=== PATIENT | male | born 1960 | race Caucasian/White ===

== ENCOUNTER 2023-07-03 21:12 | Inpatient (IN) ==
[2023-07-03] MEDS: OPTIRAY 320 125ml IV ONE (21:15)
--- NOTE | 2023-07-03 21:24 | Emergency Department Note ---
Impression & Plan CVA (cerebral vascular accident), Expressive aphasia, Facial droop due to acute cerebrovascular accident (CVA), Left-sided weakness, Rhabdomyolysis, Elevated troponin ED Provider Note NAME: DENNIS MARKS AGE: 63 SEX: M : 1960 ARRIVES VIA: Ambulance INFORMANT: Patient ED PROVIDER(S): Bhavik Montes MD CHIEF COMPLAINT: Left sided weakness, Prolonged down-time PLAN: Disposition: Admit MEDICAL DECISION MAKING: The patient is a pleasant 63-year-old gentleman with past medical history of acid reflux without regular primary care follow-up who presents to the emergency department via EMS for evaluation of left-sided weakness in the setting of having unwitnessed fall and prolonged downtime estimated to be since Saturday when the family reports they last spoke to him on the phone in the morning. They report that they grew concerned yesterday when they did not hear from him as they usually do and were trying to call him and it was not until today that he was discovered laying on the ground in his home where it seems he may have been since at least Saturday evening. I did review the case with EMS via medical command call and given unclear last known well which likely was Saturday no indication for stroke activation however his CT imaging was expedited and the patient was taken directly to the CT given he was stable and protecting his airway. The patient's daughter and sister did arrive to the bedside. On my evaluation upon arrival to the critical care bay the patient's blood pressure is elevated in the 170s/70s and vital signs otherwise stable. Appears clinically dry. He has overt expressive aphasia, left-sided facial droop, left- sided weakness with 0/5 strength of the left upper extremity and 2/5 strength of the left lower extremity. Per my preliminary interpretation of CT imaging suggest right MCA territory stroke. I did review this with the patient and family at the bedside and explained that due to his onset of symptoms and last known well he is outside the window for acute treatment with systemic TNK or endovascular procedures. EKG without overt acute ischemia. CXR negative for acute cardiopulmonary process per my personal preliminary review/interpretation. WBC, H/H and platelets within normal limits. Chemistry without metabolic acidosis. BUNs/creatinine 30 consistent with patient's clinically dry appearance. Lactic acid 1.5, within normal limits. LFTs unremarkable. CPK is elevated at 887 in setting of prolonged downtime. Initial high-sensitivity troponin 43, nonspecific. Procalcitonin is not elevated. UA without evidence of infection but with 3+ ketones consistent with patient's clinically dry appearance. Urine drug screen was negative. Respiratory BioFire was negative. Medical alcohol was undetectable. CT of the head and CT of the head and neck radiology interpretation completed and confirms suspected initial impression of right MCA stroke with hypodensities noted in the right prieto radiata, caudate and basal ganglia and occlusion of the M1 segment of the right MCA with distal reconstitution. CT of the chest and abdomen pelvis as well as cervical spine negative for acute traumatic findings. Description of bladder prominence less likely to be related to UTI given unremarkable UA. Patient and family at bedside are in agreement with plan for admission and further management. IV fluid hydration provided and blood pressure did improve. Case was discussed with Dr. Hartley, [facility], who will evaluate the patient for admission. Further management per admitting team. Triage Nursing notes reviewed and agree them. Prior/external medical records reviewed Vital Signs: reviewed Differential diagnosis: Infection, dehydration, metabolic abnormality, hypo/hyperglycemia, electrolyte disturbance, anemia, hypoxia, cardiac sources, intracerebral event, toxicologic, neurologic, as well as other pathologies. ER treatment provided: See below. Diagnostics interpreted by me: ECG: Normal sinus rhythm, 78 bpm, no ectopy, LVH, no overt ST ovation or depression, QTc 430, QRS 82. Cardiac Monitoring: An order for continuous cardiac monitoring was placed and demonstrated normal sinus rhythm, 78 bpm, no ectopy. Laboratory studies: See below Imaging studies: See below Consultation(s): Case was discussed with Dr. Hartley [facility], who will evaluate the patient for admission. HPI: The patient is a pleasant 63-year-old gentleman with past medical history of acid reflux without regular primary care follow-up who presents to the emergency department via EMS for evaluation of left-sided weakness in the setting of having unwitnessed fall and prolonged downtime estimated to be since Saturday when the family reports they last spoke to him on the phone in the morning. They report that they grew concerned yesterday when they did not hear from him as they usually do and were trying to call him and it was not until today that he was discovered laying on the ground in his home where it seems he may have been since at least Saturday evening. I did review the case with EMS via medical command call and given unclear last known well which likely was Saturday no indication for stroke activation however his CT imaging was expedited and the patient was taken directly to the CT given he was stable and protecting his airway. The patient's daughter and sister did arrive to the bedside. ROS: See above HPI for pertinent positives & negatives. A total of 10 systems reviewed and were otherwise negative. VITALS:See Below PHYSICAL EXAMINATION: GENERAL: Awake, alert, in no distress HENT: Normocephalic. Left temporal/facial pressure-dependent erythema. Oropharynx with dry mucous membranes and otherwise unremarkable. EYES: Normal conjunctiva. Sclera non-icteric. NECK: Supple. No nuchal rigidity. FROM. No JVD. RESPIRATORY: Clear to auscultation. CARDIAC: Regular rate, normal rhythm. Extremities warm and well perfused. Pulses equal. ABDOMEN: Soft, non-distended. No tenderness to palpation. No rebound or guarding. No masses. RECTAL: Deferred. MUSCULOSKELETAL: Chest examination reveals no tenderness. The back is symmetrical on inspection without obvious abnormality. There is no CVA tenderness to palpation. No joint edema. LOWER EXTREMITIES: Calves are equal size bilaterally and non-tender. No edema. No discoloration. NEURO: Overt expressive aphasia, left-sided facial droop, left-sided weakness with 0/5 strength of the left upper extremity and 2/5 strength of the left lower extremity. SKIN: No rash or jaundice noted. ED COURSE: Critical Care: I have personally spent greater than 35 minutes of critical care time in the direct management of this patient. This includes bedside care, interpretation of diagnostic studies, and testing, discussion with consultants, patient, and family members, and other required patient management activities. This 35 minutes is in excess of all separately billable procedures. Bhavik Montes MD Past Med/Surg History Medical History H/O gastroesophageal reflux (GERD) Social History Smoking Status: Never smoker Preferred Language: Lao Feels Safe at Home: Yes Allergies Allergies Allergy/AdvReac Type Severity Reaction Status Date / Time No Known Allergies Allergy Verified 07/03/23 21:36 Home Meds Home Medications Medication Instructions Recorded Confirmed No Known Home Medications 07/03/23 07/03/23 Results & Data (ED) Vital Signs Vital Signs - 24 hr 07/03/23 21:26 07/03/23 21:26 07/03/23 21:30 Temperature 37.2 C Temperature Source Axillary Pulse Rate 83 78 78 Pulse Rate from SpO2 Sensor 78 Pulse Rhythm Regular Pulse Strength Normal Respiratory Rate 18 20 Respiratory Effort / Characteristics Non-Labored Spontaneous Respiratory Depth Normal Respiratory Pattern Regular Blood Pressure 172/70 H 171/85 H Blood Pressure Mean 104 113 Pulse Oximetry 95 96 Oxygen Delivery Method Room Air Room Air Sepsis Recent Fever Within 48 Hours No Sepsis New/Unexplained Change in Mental Status Yes Sepsis Action Taken by Nursing No Action Required 07/03/23 21:45 07/03/23 22:00 07/03/23 22:15 Temperature Temperature Source Pulse Rate 80 74 77 Pulse Rate from SpO2 Sensor 79 74 76 Pulse Rhythm Pulse Strength Respiratory Rate 23 26 H 28 H Respiratory Effort / Characteristics Respiratory Depth Respiratory Pattern Blood Pressure 175/69 H 174/89 H 164/80 H Blood Pressure Mean 104 117 108 Pulse Oximetry 96 95 94 Oxygen Delivery Method Room Air Room Air Room Air Sepsis Recent Fever Within 48 Hours Sepsis New/Unexplained Change in Mental Status Sepsis Action Taken by Nursing 07/03/23 22:30 07/03/23 22:45 07/03/23 23:00 Temperature Temperature Source Pulse Rate 75 77 77 Pulse Rate from SpO2 Sensor 75 76 77 Pulse Rhythm Pulse Strength Respiratory Rate 28 H 25 H 26 H Respiratory Effort / Characteristics Respiratory Depth Respiratory Pattern Blood Pressure 169/85 H 169/80 H 170/82 H Blood Pressure Mean 113 109 111 Pulse Oximetry 94 94 93 Oxygen Delivery Method Room Air Sepsis Recent Fever Within 48 Hours Sepsis New/Unexplained Change in Mental Status Sepsis Action Taken by Nursing 07/03/23 23:15 07/03/23 23:30 07/03/23 23:45 Temperature Temperature Source Pulse Rate 82 79 76 Pulse Rate from SpO2 Sensor 80 81 76 Pulse Rhythm Pulse Strength Respiratory Rate 28 H 20 26 H Respiratory Effort / Characteristics Respiratory Depth Respiratory Pattern Blood Pressure 168/77 H 161/78 H 157/80 H Blood Pressure Mean 107 105 105 Pulse Oximetry 93 93 92 Oxygen Delivery Method Sepsis Recent Fever Within 48 Hours Sepsis New/Unexplained Change in Mental Status Sepsis Action Taken by Nursing Laboratory Data Attestation: I reviewed the patient's lab results. 07/03/23 20:30 07/03/23 20:30 Lab Results 07/03/23 07/03/23 07/03/23 Range/Units 20:30 21:39 21:43 WBC 9.17 (4.8-10.8) K/ul RBC 5.49 (4.70-6.10) M/uL Hgb 16.3 (14.0-18.0) g/dl POC Hgb 15.0 (14.0-18.0) g/dl Hct 46.9 (42.0-52.0) % POC Hct 44 (42-52) % MCV 85.4 (80.0-100.0) fL MCH 29.7 (25.0-34.0) pg MCHC 34.8 (32.0-36.0) g/dL RDW Std Deviation 38.9 (36.4-46.3) fL RDW Coeff of Emperatriz 12.4 (11.5-14.5) % Plt Count 194 (130-400) K/uL MPV 11.5 (9.4-12.4) fL Immature Gran % (Auto) 0.2 % Neut % (Auto) 74.3 % Lymph % (Auto) 17.1 % [place] % (Auto) 8.0 % Eos % (Auto) 0.1 % Baso % (Auto) 0.3 % Neut # (Auto) 6.81 H (1.40-6.50) K/uL Lymph # (Auto) 1.57 (1.20-3.40) K/uL [place] # (Auto) 0.73 H (0.11-0.59) K/uL Eos # (Auto) 0.01 (0.00-0.50) K/uL Baso # (Auto) 0.03 (0.00-0.20) K/uL Immature Gran # (Auto) 0.02 (0.01-0.20) K/uL PT 11.8 (9.0-12.0) Seconds INR 1.1 (0.9-1.1) APTT 26 (21-31) Seconds PTT Ratio 0.9 POC Sodium 138 (135-144) mmol/L Sodium 140 (136-145) mmol/L POC Potassium 5.4 H (3.3-5.0) mmol/L Potassium 4.0 (3.5-5.1) mmol/L POC Chloride 103 (101-112) mmol/L Chloride 105 (98-107) mmol/L Carbon Dioxide 24 (21-32) mmol/L POC Total CO2 27 (24-31) mmol/L Anion Gap 11 (3-11) POC Anion Gap 15.0 L (16-25) mmol/L POC BUN 40 H (7-18) mg/dl BUN 29 H (6-23) mg/dl Creatinine 0.88 (0.6-1.4) mg/dl POC Creatinine 0.8 (0.6-1.3) mg/dl Est Cr Clr Drug Dosing 86.4 ml/min Est GFR ( Amer) 104.5 ml/min Est GFR (Non-Af Amer) 90.1 ml/min BUN/Creatinine Ratio 33.0 H (10-20) Glucose 92 (70-99(Fasting)) mg/dl POC Glucose (other) 97 (70-99) mg/dl Lactate 1.5 (0.4-2.0) mmol/L Calcium 9.8 (8.6-10.3) mg/dl POC Ioniz Calcium Zak 1.10 L (1.12-1.32) mmol/l Magnesium 2.1 (1.7-2.4) mg/dl Total Bilirubin 1.2 H (0.2-1.0) mg/dl AST 39 (13-39) U/L ALT 23 (7-52) U/L Alkaline Phosphatase 56 (34-104) U/L Total Creatine Kinase 887 H (30-223) U/L Troponin I High Sens 43.9 H (0-20) pg/ml Total Protein 7.8 (6.0-8.3) gm/dl Albumin 4.6 (3.4-5.0) gm/dl Globulin 3.2 (2.5-4.0) gm/dl Albumin/Globulin Ratio 1.4 (0.9-2) Procalcitonin Cancelled Urine Color Urine Appearance (Clear) Urine pH (4.5-7.5) Ur Specific [place] (1.000-1.030) Urine Protein (Negative) Urine Glucose (UA) (Negative) Urine Ketones (Negative) Urine Blood (Negative) Urine Nitrite (Negative) Urine Bilirubin (Negative) Urine Urobilinogen (Negative) Ur Leukocyte Esterase (Negative) Urine WBC (Auto) (0-5) /hpf Urine RBC (Auto) (0-4) /hpf U Hyaline Cast (Auto) (0-5) /lpf U Epithel Cells (Auto) (0-5) /lpf Urine Bacteria (Auto) (Negative) Urine Opiates Screen (Neg) Ur Methadone, Qual (Neg) Urine Barbiturates (Neg) Ur Phencyclidine (PCP) (Neg) U Amphetamin/Meth Scrn (Neg) MDMA (Ecstasy) Screen (Neg) U Benzodiazepines Scrn (Neg) Ur Cocaine Metabolite (Neg) U Marijuana (THC) Screen (Neg) Ethyl Alcohol mg/dL < 10.0 (<10.0) mg/dl Adenovirus (PCR) (NotDetected) B. pertussis DNA (PCR) (NotDetected) B.parapertussis DNA PCR (NotDetected) C. pneumoniae DNA (PCR) (NotDetected) Coronavirus OC43 (PCR) (NotDetected) Coronavirus HKU1 (PCR) (NotDetected) Coronavirus 229E (PCR) (NotDetected) SARS-CoV-2 (PCR) (NotDetected) Coronavirus NL63 (PCR) (NotDetected) Human Metapneumovir PCR (NotDetected) Influenza Type A (PCR) (NotDetected) Influenza Type B (PCR) (NotDetected) M. pneumoniae (PCR) (NotDetected) Parainfluenza 1 (PCR) (NotDetected) Parainfluenza 2 (PCR) (NotDetected) Parainfluenza 3 (PCR) (NotDetected) Parainfluenza 4 (PCR) (NotDetected) RSV (PCR) (NotDetected) Entero/Rhino (PCR) (NotDetected) 07/03/23 07/03/23 Range/Units 22:28 22:55 WBC (4.8-10.8) K/ul RBC (4.70-6.10) M/uL Hgb (14.0-18.0) g/dl POC Hgb (14.0-18.0) g/dl Hct (42.0-52.0) % POC Hct (42-52) % MCV (80.0-100.0) fL MCH (25.0-34.0) pg MCHC (32.0-36.0) g/dL RDW Std Deviation (36.4-46.3) fL RDW Coeff of Emperatriz (11.5-14.5) % Plt Count (130-400) K/uL MPV (9.4-12.4) fL Immature Gran % (Auto) % Neut % (Auto) % Lymph % (Auto) % [place] % (Auto) % Eos % (Auto) % Baso % (Auto) % Neut # (Auto) (1.40-6.50) K/uL Lymph # (Auto) (1.20-3.40) K/uL [place] # (Auto) (0.11-0.59) K/uL Eos # (Auto) (0.00-0.50) K/uL Baso # (Auto) (0.00-0.20) K/uL Immature Gran # (Auto) (0.01-0.20) K/uL PT (9.0-12.0) Seconds INR (0.9-1.1) APTT (21-31) Seconds PTT Ratio POC Sodium (135-144) mmol/L Sodium (136-145) mmol/L POC Potassium (3.3-5.0) mmol/L Potassium (3.5-5.1) mmol/L POC Chloride (101-112) mmol/L Chloride (98-107) mmol/L Carbon Dioxide (21-32) mmol/L POC Total CO2 (24-31) mmol/L Anion Gap (3-11) POC Anion Gap (16-25) mmol/L POC BUN (7-18) mg/dl BUN (6-23) mg/dl Creatinine (0.6-1.4) mg/dl POC Creatinine (0.6-1.3) mg/dl Est Cr Clr Drug Dosing ml/min Est GFR ( Amer) ml/min Est GFR (Non-Af Amer) ml/min BUN/Creatinine Ratio (10-20) Glucose (70-99(Fasting)) mg/dl POC Glucose (other) (70-99) mg/dl Lactate (0.4-2.0) mmol/L Calcium (8.6-10.3) mg/dl POC Ioniz Calcium Zak (1.12-1.32) mmol/l Magnesium (1.7-2.4) mg/dl Total Bilirubin (0.2-1.0) mg/dl AST (13-39) U/L ALT (7-52) U/L Alkaline Phosphatase (34-104) U/L Total Creatine Kinase (30-223) U/L Troponin I High Sens (0-20) pg/ml Total Protein (6.0-8.3) gm/dl Albumin (3.4-5.0) gm/dl Globulin (2.5-4.0) gm/dl Albumin/Globulin Ratio (0.9-2) Procalcitonin Urine Color Yellow Urine Appearance Clear (Clear) Urine pH 5.0 (4.5-7.5) Ur Specific [place] > 1.045 H (1.000-1.030) Urine Protein Trace H (Negative) Urine Glucose (UA) Negative (Negative) Urine Ketones 3+ H (Negative) Urine Blood Negative (Negative) Urine Nitrite Negative (Negative) Urine Bilirubin Negative (Negative) Urine Urobilinogen Negative (Negative) Ur Leukocyte Esterase Negative (Negative) Urine WBC (Auto) 1-5 (0-5) /hpf Urine RBC (Auto) 0-4 (0-4) /hpf U Hyaline Cast (Auto) 1-5 (0-5) /lpf U Epithel Cells (Auto) 0-5 (0-5) /lpf Urine Bacteria (Auto) Negative (Negative) Urine Opiates Screen Neg (Neg) Ur Methadone, Qual Neg (Neg) Urine Barbiturates Neg (Neg) Ur Phencyclidine (PCP) Neg (Neg) U Amphetamin/Meth Scrn Neg (Neg) MDMA (Ecstasy) Screen Neg (Neg) U Benzodiazepines Scrn Neg (Neg) Ur Cocaine Metabolite Neg (Neg) U Marijuana (THC) Screen Neg (Neg) Ethyl Alcohol mg/dL (<10.0) mg/dl Adenovirus (PCR) Not Detected (NotDetected) B. pertussis DNA (PCR) Not Detected (NotDetected) B.parapertussis DNA PCR Not Detected (NotDetected) C. pneumoniae DNA (PCR) Not Detected (NotDetected) Coronavirus OC43 (PCR) Not Detected (NotDetected) Coronavirus HKU1 (PCR) Not Detected (NotDetected) Coronavirus 229E (PCR) Not Detected (NotDetected) SARS-CoV-2 (PCR) Not Detected (NotDetected) Coronavirus NL63 (PCR) Not Detected (NotDetected) Human Metapneumovir PCR Not Detected (NotDetected) Influenza Type A (PCR) Not Detected (NotDetected) Influenza Type B (PCR) Not Detected (NotDetected) M. pneumoniae (PCR) Not Detected (NotDetected) Parainfluenza 1 (PCR) Not Detected (NotDetected) Parainfluenza 2 (PCR) Not Detected (NotDetected) Parainfluenza 3 (PCR) Not Detected (NotDetected) Parainfluenza 4 (PCR) Not Detected (NotDetected) RSV (PCR) Not Detected (NotDetected) Entero/Rhino (PCR) Not Detected (NotDetected) Administered Medications Sodium Chloride (Nss) 1,000 mls @ 125 mls/hr IV .Q8H RAYNA Stop: 08/03/23 02:09 Last Admin: 07/04/23 02:53 Dose: 125 mls/hr Documented By: AM Discontinued Medications Ioversol (Optiray 320 125ml) 115 ml IV ONCE ONE Stop: 07/03/23 21:15 Last Admin: 07/03/23 21:15 Dose: 115 ml Documented By: Laurent Imaging Data Radiologist's Impression: Head CT 07/03/23 20:51 CR Exam(s): CT HEAD Without Contrast EXAM: CT Head Without Intravenous Contrast CLINICAL HISTORY: Reason for exam: neuro deficit, acute stroke suspected. TECHNIQUE: Axial computed tomography images of the head/brain without intravenous contrast. CTDI is 67.18 mGy and DLP is 1098.96 mGy-cm. Automated exposure control was utilized for the study. A dose lowering technique was utilized adhering to the principles of ALARA. COMPARISON: None FINDINGS: Brain: Small hypodensities in the right prieto radiata, caudate, and basal ganglia may represent subacute or chronic infarcts. No hemorrhage identified. No extra-axial fluid collection. No mass effect or midline shift. Scattered areas of hypoattenuation in the supratentorial white matter likely represent chronic small vessel ischemic changes. Ventricles and sulci: Prominence of the ventricles and sulci is likely secondary to cerebral volume loss. Bones: Normal. No bony lesion or acute fracture. Subcutaneous tissues: Normal. Sinuses: Normal. No air-fluid levels or mucosal thickening. Mastoid air cells: Normal. Orbits: Grossly unremarkable. Other: Atherosclerotic calcifications in the intracranial vasculature. IMPRESSION: Small hypodensities in the right prieto radiata, caudate, and basal ganglia may represent subacute or chronic infarcts. Further evaluation could be performed with MRI. Communications: Verify Receipt Call Doctor Stroke Electronically signed by: Richa Bustillos M.D. 07/03/23 21:47 PM Head CTA 07/03/23 20:51 CR Exam(s): CTA HEAD With Contrast IV Amt: 115 ML OPTIRAY 320 EXAM: CT Angiography Head With Intravenous Contrast CLINICAL HISTORY: Reason for exam: neuro deficit, acute stroke suspected. TECHNIQUE: Axial computed tomographic angiography images of the head with intravenous contrast. CTDI is 26.58 mGy and DLP is 1243.71 mGy-cm. Automated exposure control was utilized for the study. A dose lowering technique was utilized adhering to the principles of ALARA. MIP reconstructed images were created and reviewed. CONTRAST: Patient received 115 ML OPTIRAY 320 of IV contrast COMPARISON: None FINDINGS: Right internal carotid artery: Mild atherosclerotic calcifications in the distal right ICA. No significant stenosis. No aneurysm. Right anterior cerebral artery: Unremarkable. No occlusion or significant stenosis. No aneurysm. Right middle cerebral artery: Occluded M1 segment of the right MCA with reconstitution of flow in the distal M1/M2 segments. No aneurysm. Right posterior cerebral artery: Unremarkable. No occlusion or significant stenosis. No aneurysm. Right vertebral artery: Unremarkable as visualized. Left internal carotid artery: Mild atherosclerotic calcifications of the distal left ICA. No significant stenosis. No aneurysm. Left anterior cerebral artery: Unremarkable. No occlusion or significant stenosis. No aneurysm. Left middle cerebral artery: Unremarkable. No occlusion or significant stenosis. No aneurysm. Left posterior cerebral artery: Unremarkable. No occlusion or significant stenosis. No aneurysm. Left vertebral artery: Unremarkable as visualized. Basilar artery: Unremarkable. No occlusion or significant stenosis. No aneurysm. IMPRESSION: Occluded M1 segment of the right MCA with reconstitution of flow in the distal M1/M2 segments. Communications: Call Doctor Stroke Electronically signed by: Richa Bustillos M.D. 07/03/23 21:50 PM Neck CTA 07/03/23 20:51 CR Exam(s): CTA NECK With Contrast IV Amt: 115 ML OPTIRAY 320 EXAM: CT Angiography Neck With Intravenous Contrast CLINICAL HISTORY: Reason for exam: neuro deficit, acute stroke suspected. TECHNIQUE: Routine carotid CT angiography protocol was performed with intravenous contrast. NASCET criteria using the distal ICAs for comparison were used for evaluation of stenoses. CTDI is 26.58 mGy and DLP is 1243.71 mGy-cm. Automated exposure control was utilized for the study. A dose lowering technique was utilized adhering to the principles of ALARA. MIP reconstructed images were created and reviewed. CONTRAST: Patient received 115 ML OPTIRAY 320 of IV contrast COMPARISON: None FINDINGS: VASCULATURE: Right common carotid artery: Unremarkable. No occlusion or significant stenosis. No dissection. Right internal carotid artery: Atherosclerotic calcifications of the proximal right ICA. No significant stenosis. No dissection. Right external carotid artery: Unremarkable. No occlusion. Right vertebral artery: Unremarkable. No occlusion or significant stenosis. No dissection. Left common carotid artery: Unremarkable. No occlusion or significant stenosis. No dissection. Left internal carotid artery: Atherosclerotic calcifications in the left carotid bulb. No significant stenosis. No dissection. Left external carotid artery: Unremarkable. No occlusion. Left vertebral artery: Unremarkable. No occlusion or significant stenosis. No dissection. NECK: Bones/joints: Degenerative changes of the spine. No acute fracture. Soft tissues: Unremarkable. Lung apices: Clear. CAROTID STENOSIS REFERENCE USING NASCET CRITERIA: % ICA stenosis = (1 - narrowest ICA diameter/diameter of distal cervical ICA) x 100. Mild - <50% stenosis. Moderate - 50-69% stenosis. Severe - 70-94% stenosis. Near occlusion - 95-99% stenosis. Occluded - 100% stenosis. IMPRESSION: No significant stenosis, occlusion, or dissection. Communications: Call Doctor Stroke Electronically signed by: Richa Bustillos M.D. 07/03/23 21:52 PM Abdomen/Pelvis CT 07/03/23 20:52 Exam(s): CT ABDOMEN + PELVIS With Contrast IV Amt: 115 ML OPTIRAY 320 EXAM: CT Abdomen and Pelvis With Intravenous Contrast CLINICAL HISTORY: Reason for exam: fall. TECHNIQUE: Axial computed tomography images of the abdomen and pelvis with intravenous contrast. CTDI is 12.6 mGy and DLP is 441.67 mGy-cm. Automated exposure control was utilized for the study. A dose lowering technique was utilized adhering to the principles of ALARA. CONTRAST: Patient received 115 ML OPTIRAY 320 of IV contrast COMPARISON: None FINDINGS: Lung bases: Unremarkable. No mass. No consolidation. ABDOMEN: Liver: Unremarkable. No mass. Gallbladder and bile ducts: Unremarkable. No calcified stones. No ductal dilation. Pancreas: Unremarkable. No mass. No ductal dilation. Spleen: Unremarkable. No splenomegaly. Adrenals: Unremarkable. No mass. Kidneys and ureters: Unremarkable. No hydronephrosis or obstructing stone. Stomach and bowel: Evaluation of the stomach is limited by underdistention. No mucosal thickening. No bowel obstruction or inflammation. PELVIS: Appendix: Appendix is not visualized on this exam. Bladder: Mild prominence of the bladder wall is nonspecific. Please correlate with urinalysis if concerned for cystitis. Reproductive: Borderline size of the prostate. ABDOMEN and PELVIS: Intraperitoneal space: Unremarkable. No free air. No significant fluid collection. Bones/joints: Degenerative changes of the spine. No acute fracture. No dislocation. Soft tissues: Small fat-containing left inguinal hernia. Vasculature: Unremarkable. No abdominal aortic aneurysm. Lymph nodes: Unremarkable. No enlarged lymph nodes. IMPRESSION: Mild prominence of the bladder wall is nonspecific. Please correlate with urinalysis if concerned for cystitis. No acute traumatic abnormality. Electronically signed by: Richa Bustillos M.D. 07/03/23 21:[address] 07/03/23 20:52 Exam(s): CT C SPINE EXAM: CT Cervical Spine Without Intravenous Contrast CLINICAL HISTORY: Reason for exam: fall. TECHNIQUE: Axial computed tomography images of the cervical spine without intravenous contrast. CTDI is 12.6 mGy and DLP is 441.67 mGy-cm. Automated exposure control was utilized for the study. A dose lowering technique was utilized adhering to the principles of ALARA. COMPARISON: None FINDINGS: Bones: No acute fracture or bony lesion. Disc spaces: Degenerative changes of the spine. Mild retrolisthesis of C3 on C4. Moderate spinal canal stenosis at C3-4 and C5-6. Soft tissues: Normal. Other: Atherosclerotic changes of the vasculature. IMPRESSION: No acute traumatic abnormality. Electronically signed by: Richa Bsutillos M.D. 07/03/23 21:[address] 07/03/23 20:52 Exam(s): CT CHEST With Contrast IV Amt: 115 ML OPTIRAY 320 EXAM: CT Chest With Intravenous Contrast CLINICAL HISTORY: Reason for exam: fall. TECHNIQUE: Axial computed tomography images of the chest with intravenous contrast. CTDI is 25.8 mGy and DLP is 871.68 mGy-cm. Automated exposure control was utilized for the study. A dose lowering technique was utilized adhering to the principles of ALARA. CONTRAST: Patient received 115 ML OPTIRAY 320 of IV contrast COMPARISON: None FINDINGS: Limitations: Exam is limited by motion artifacts. Lungs: Unremarkable. No mass. No consolidation. Pleural space: Unremarkable. No pneumothorax. No significant effusion. Heart: Unremarkable. No cardiomegaly. No significant pericardial effusion. No significant coronary artery calcifications. Bones/joints: Degenerative changes of the spine. No acute fracture. No dislocation. Soft tissues: Unremarkable. Vasculature: Unremarkable. No thoracic aortic aneurysm. Lymph nodes: Unremarkable. No enlarged lymph nodes. IMPRESSION: No definite acute findings in the chest. Evaluation is limited by motion artifact. Electronically signed by: Richa Bustillos M.D. 07/03/23 21:54 PM Discharge Plan Visit Data Chief Complaint: Stroke/CVA Symptoms Stated Complaint: FOUND ON FLOOR, AMS, L SIDED WEAKNESS/FACIAL DROOP ED Provider: Bhavik Montes Discharge Problem: CVA (cerebral vascular accident), Expressive aphasia, Facial droop due to acute cerebrovascular accident (CVA), Left-sided weakness, Rhabdomyolysis, Elevated troponin Patient Disposition: Admitted As Inpatient Discharge Instructions Interventions: ED Discharge Assessment Last Done: 07/04/23 01:58 Discharge Problem: CVA (cerebral vascular accident) Qualifiers: CVA mechanism: occlusion Precerebral and cerebral artery: middle cerebral artery Laterality of affected vessel: right Qualified Code(s): I63.511 - Cerebral infarction due to unspecified occlusion or stenosis of right middle cerebral artery Rhabdomyolysis Qualifiers: Rhabdomyolysis type: traumatic Encounter type: initial encounter Qualified Code(s): T79.6XXA - Traumatic ischemia of muscle, initial encounter
--- NOTE | 2023-07-03 21:48 | CT Scan Report ---
Exam(s): CT HEAD Without Contrast EXAM: CT Head Without Intravenous Contrast CLINICAL HISTORY: Reason for exam: neuro deficit, acute stroke suspected. TECHNIQUE: Axial computed tomography images of the head/brain without intravenous contrast. CTDI is 67.18 mGy and DLP is 1098.96 mGy-cm. Automated exposure control was utilized for the study. A dose lowering technique was utilized adhering to the principles of ALARA. COMPARISON: None FINDINGS: Brain: Small hypodensities in the right prieto radiata, caudate, and basal ganglia may represent subacute or chronic infarcts. No hemorrhage identified. No extra-axial fluid collection. No mass effect or midline shift. Scattered areas of hypoattenuation in the supratentorial white matter likely represent chronic small vessel ischemic changes. Ventricles and sulci: Prominence of the ventricles and sulci is likely secondary to cerebral volume loss. Bones: Normal. No bony lesion or acute fracture. Subcutaneous tissues: Normal. Sinuses: Normal. No air-fluid levels or mucosal thickening. Mastoid air cells: Normal. Orbits: Grossly unremarkable. Other: Atherosclerotic calcifications in the intracranial vasculature. IMPRESSION: Small hypodensities in the right prieto radiata, caudate, and basal ganglia may represent subacute or chronic infarcts. Further evaluation could be performed with MRI. Communications: Verify Receipt Call Doctor Stroke Electronically signed by: Richa Bustillos M.D. 07/03/23 21:47 PM
--- NOTE | 2023-07-03 21:51 | CT Scan Report ---
Exam(s): CTA HEAD With Contrast IV Amt: 115 ML OPTIRAY 320 EXAM: CT Angiography Head With Intravenous Contrast CLINICAL HISTORY: Reason for exam: neuro deficit, acute stroke suspected. TECHNIQUE: Axial computed tomographic angiography images of the head with intravenous contrast. CTDI is 26.58 mGy and DLP is 1243.71 mGy-cm. Automated exposure control was utilized for the study. A dose lowering technique was utilized adhering to the principles of ALARA. MIP reconstructed images were created and reviewed. CONTRAST: Patient received 115 ML OPTIRAY 320 of IV contrast COMPARISON: None FINDINGS: Right internal carotid artery: Mild atherosclerotic calcifications in the distal right ICA. No significant stenosis. No aneurysm. Right anterior cerebral artery: Unremarkable. No occlusion or significant stenosis. No aneurysm. Right middle cerebral artery: Occluded M1 segment of the right MCA with reconstitution of flow in the distal M1/M2 segments. No aneurysm. Right posterior cerebral artery: Unremarkable. No occlusion or significant stenosis. No aneurysm. Right vertebral artery: Unremarkable as visualized. Left internal carotid artery: Mild atherosclerotic calcifications of the distal left ICA. No significant stenosis. No aneurysm. Left anterior cerebral artery: Unremarkable. No occlusion or significant stenosis. No aneurysm. Left middle cerebral artery: Unremarkable. No occlusion or significant stenosis. No aneurysm. Left posterior cerebral artery: Unremarkable. No occlusion or significant stenosis. No aneurysm. Left vertebral artery: Unremarkable as visualized. Basilar artery: Unremarkable. No occlusion or significant stenosis. No aneurysm. IMPRESSION: Occluded M1 segment of the right MCA with reconstitution of flow in the distal M1/M2 segments. Communications: Call Doctor Stroke Electronically signed by: Richa Bustillos M.D. 07/03/23 21:50 PM
--- NOTE | 2023-07-03 21:53 | CT Scan Report ---
Exam(s): CTA NECK With Contrast IV Amt: 115 ML OPTIRAY 320 EXAM: CT Angiography Neck With Intravenous Contrast CLINICAL HISTORY: Reason for exam: neuro deficit, acute stroke suspected. TECHNIQUE: Routine carotid CT angiography protocol was performed with intravenous contrast. NASCET criteria using the distal ICAs for comparison were used for evaluation of stenoses. CTDI is 26.58 mGy and DLP is 1243.71 mGy-cm. Automated exposure control was utilized for the study. A dose lowering technique was utilized adhering to the principles of ALARA. MIP reconstructed images were created and reviewed. CONTRAST: Patient received 115 ML OPTIRAY 320 of IV contrast COMPARISON: None FINDINGS: VASCULATURE: Right common carotid artery: Unremarkable. No occlusion or significant stenosis. No dissection. Right internal carotid artery: Atherosclerotic calcifications of the proximal right ICA. No significant stenosis. No dissection. Right external carotid artery: Unremarkable. No occlusion. Right vertebral artery: Unremarkable. No occlusion or significant stenosis. No dissection. Left common carotid artery: Unremarkable. No occlusion or significant stenosis. No dissection. Left internal carotid artery: Atherosclerotic calcifications in the left carotid bulb. No significant stenosis. No dissection. Left external carotid artery: Unremarkable. No occlusion. Left vertebral artery: Unremarkable. No occlusion or significant stenosis. No dissection. NECK: Bones/joints: Degenerative changes of the spine. No acute fracture. Soft tissues: Unremarkable. Lung apices: Clear. CAROTID STENOSIS REFERENCE USING NASCET CRITERIA: % ICA stenosis = (1 - narrowest ICA diameter/diameter of distal cervical ICA) x 100. Mild - <50% stenosis. Moderate - 50-69% stenosis. Severe - 70-94% stenosis. Near occlusion - 95-99% stenosis. Occluded - 100% stenosis. IMPRESSION: No significant stenosis, occlusion, or dissection. Communications: Call Doctor Stroke Electronically signed by: Richa Bustillos M.D. 07/03/23 21:52 PM
--- NOTE | 2023-07-03 21:54 | CT Scan Report ---
Exam(s): CT CHEST With Contrast IV Amt: 115 ML OPTIRAY 320 EXAM: CT Chest With Intravenous Contrast CLINICAL HISTORY: Reason for exam: fall. TECHNIQUE: Axial computed tomography images of the chest with intravenous contrast. CTDI is 25.8 mGy and DLP is 871.68 mGy-cm. Automated exposure control was utilized for the study. A dose lowering technique was utilized adhering to the principles of ALARA. CONTRAST: Patient received 115 ML OPTIRAY 320 of IV contrast COMPARISON: None FINDINGS: Limitations: Exam is limited by motion artifacts. Lungs: Unremarkable. No mass. No consolidation. Pleural space: Unremarkable. No pneumothorax. No significant effusion. Heart: Unremarkable. No cardiomegaly. No significant pericardial effusion. No significant coronary artery calcifications. Bones/joints: Degenerative changes of the spine. No acute fracture. No dislocation. Soft tissues: Unremarkable. Vasculature: Unremarkable. No thoracic aortic aneurysm. Lymph nodes: Unremarkable. No enlarged lymph nodes. IMPRESSION: No definite acute findings in the chest. Evaluation is limited by motion artifact. Electronically signed by: Richa Bustillos M.D. 07/03/23 21:54 PM
--- NOTE | 2023-07-03 21:56 | CT Scan Report ---
Exam(s): CT ABDOMEN + PELVIS With Contrast IV Amt: 115 ML OPTIRAY 320 EXAM: CT Abdomen and Pelvis With Intravenous Contrast CLINICAL HISTORY: Reason for exam: fall. TECHNIQUE: Axial computed tomography images of the abdomen and pelvis with intravenous contrast. CTDI is 12.6 mGy and DLP is 441.67 mGy-cm. Automated exposure control was utilized for the study. A dose lowering technique was utilized adhering to the principles of ALARA. CONTRAST: Patient received 115 ML OPTIRAY 320 of IV contrast COMPARISON: None FINDINGS: Lung bases: Unremarkable. No mass. No consolidation. ABDOMEN: Liver: Unremarkable. No mass. Gallbladder and bile ducts: Unremarkable. No calcified stones. No ductal dilation. Pancreas: Unremarkable. No mass. No ductal dilation. Spleen: Unremarkable. No splenomegaly. Adrenals: Unremarkable. No mass. Kidneys and ureters: Unremarkable. No hydronephrosis or obstructing stone. Stomach and bowel: Evaluation of the stomach is limited by underdistention. No mucosal thickening. No bowel obstruction or inflammation. PELVIS: Appendix: Appendix is not visualized on this exam. Bladder: Mild prominence of the bladder wall is nonspecific. Please correlate with urinalysis if concerned for cystitis. Reproductive: Borderline size of the prostate. ABDOMEN and PELVIS: Intraperitoneal space: Unremarkable. No free air. No significant fluid collection. Bones/joints: Degenerative changes of the spine. No acute fracture. No dislocation. Soft tissues: Small fat-containing left inguinal hernia. Vasculature: Unremarkable. No abdominal aortic aneurysm. Lymph nodes: Unremarkable. No enlarged lymph nodes. IMPRESSION: Mild prominence of the bladder wall is nonspecific. Please correlate with urinalysis if concerned for cystitis. No acute traumatic abnormality. Electronically signed by: Richa Bustillos M.D. 07/03/23 21:56 PM
[2023-07-03 21:59] LABS: iSTAT Creatinine 0.8 mg/dl (0.6-1.3); iSTAT Ionized Calcium 1.1 mmol/l (1.12-1.32); iSTAT Potassium 5.4 mmol/L (3.3-5.0)
--- NOTE | 2023-07-03 21:59 | CT Scan Report ---
Exam(s): CT C SPINE EXAM: CT Cervical Spine Without Intravenous Contrast CLINICAL HISTORY: Reason for exam: fall. TECHNIQUE: Axial computed tomography images of the cervical spine without intravenous contrast. CTDI is 12.6 mGy and DLP is 441.67 mGy-cm. Automated exposure control was utilized for the study. A dose lowering technique was utilized adhering to the principles of ALARA. COMPARISON: None FINDINGS: Bones: No acute fracture or bony lesion. Disc spaces: Degenerative changes of the spine. Mild retrolisthesis of C3 on C4. Moderate spinal canal stenosis at C3-4 and C5-6. Soft tissues: Normal. Other: Atherosclerotic changes of the vasculature. IMPRESSION: No acute traumatic abnormality. Electronically signed by: Richa Bustillos M.D. 07/03/23 21:58 PM
[2023-07-03 22:25] LABS: Basophils # (auto) 0.03 K/uL (0.00-0.20); Basophils % (auto) 0.3 %; Eosinophils # (auto) 0.01 K/uL (0.00-0.50); Eosinophils % (auto) 0.1 %; Hematocrit (blood only) 46.9 % (42.0-52.0); Hemoglobin 16.3 g/dl (14.0-18.0); Immature Granulocytes # (auto) 0.02 K/uL (0.01-0.20); Immature Granulocytes % (auto) 0.2 %; Lymphocytes # (auto) 1.57 K/uL (1.20-3.40); Lymphocytes % (auto) 17.1 %; Mean Corpuscular Hemoglobin 29.7 pg (25.0-34.0); Mean Corpuscular Hgb Conc 34.8 g/dL (32.0-36.0); Mean Corpuscular Volume 85.4 fL (80.0-100.0); Mean Platelet Volume 11.5 fL (9.4-12.4); Monocytes # (auto) 0.73 K/uL (0.11-0.59); Neutrophils # (auto) 6.81 K/uL (1.40-6.50); Neutrophils % (auto) 74.3 %; Platelet Count 194 K/uL (130-400); RDW Coefficient of Variation 12.4 % (11.5-14.5); RDW Standard Deviation 38.9 fL (36.4-46.3); Red Blood Count 5.49 M/uL (4.70-6.10); White Blood Count 9.17 K/ul (4.8-10.8)
[2023-07-03 22:39] LABS: Albumin Globulin Ratio 1.4 (0.9-2); Albumin Level 4.6 gm/dl (3.4-5.0); Bilirubin,Total 1.2 mg/dl (0.2-1.0); Calcium 9.8 mg/dl (8.6-10.3); Creatinine Clr Calc Pharmacy 86.4 ml/min; Est GFR (African American) 104.5 ml/min; Est GFR (Non-African American) 90.1 ml/min; Globulin 3.2 gm/dl (2.5-4.0); Magnesium 2.1 mg/dl (1.7-2.4); Total Protein 7.8 gm/dl (6.0-8.3)
[2023-07-03 22:45] LABS: Troponin I High Sensitivity 43.9 pg/ml (0-20)
[2023-07-03 23:03] LABS: INR 1.1 (0.9-1.1); Partial Thromboplastin Ratio 0.9; Partial Thromboplastin Time 26 Seconds (21-31); Prothrombin Time 11.8 Seconds (9.0-12.0)
[2023-07-03 23:29] LABS: Adenovirus PCR Not Detected (NotDetected); Bordetella parapertussis PCR Not Detected (NotDetected); Bordetella pertussis PCR Not Detected (NotDetected); Chlamydia pneumoniae PCR Not Detected (NotDetected); Coronavirus 229E PCR Not Detected (NotDetected); Coronavirus CoV-2 (COVID19)PCR Not Detected (NotDetected); Coronavirus HKU1 PCR Not Detected (NotDetected); Coronavirus NL63 PCR Not Detected (NotDetected); Coronavirus OC43PCR Not Detected (NotDetected); Human Metapneumovirus PCR Not Detected (NotDetected); Influenza A PCR Not Detected (NotDetected); Influenza B PCR Not Detected (NotDetected); Mycoplasma pneumoniae PCR Not Detected (NotDetected); Parainfluenza Virus 1 PCR Not Detected (NotDetected); Parainfluenza Virus 2 PCR Not Detected (NotDetected); Parainfluenza Virus 3 PCR Not Detected (NotDetected); Parainfluenza Virus 4 PCR Not Detected (NotDetected); Respiratory Syncytial VirusPCR Not Detected (NotDetected); Rhinovirus/Enterovirus PCR Not Detected (NotDetected)
[2023-07-03 23:39] LABS: Appearance Urine Clear (Clear); Bacteria Urine Automated Negative (Negative); Bilirubin Urine Negative (Negative); Blood Urine Negative (Negative); Color Urine Yellow; Epithelial Cell Urine Auto 0-5 /lpf (0-5); Glucose Urine UA Negative (Negative); Ketones Urine 3+ (Negative); Leukocyte Esterase Urine Negative (Negative); Nitrite Urine Negative (Negative); Protein Urine Trace (Negative); RBC Urine Automated 0-4 /hpf (0-4); Specific Gravity Urine > 1.045 (1.000-1.030); Urobilinogen Urine Negative (Negative)
[2023-07-03 23:58] LABS: Amphetamines+Metham, Urine Neg (Neg); Barbiturates, Urine Neg (Neg); Benzodiazepine, Urine Neg (Neg); Cocaine, Urine Neg (Neg); MDMA (Ecstacy), Urine Neg (Neg); Marijuana, Urine Neg (Neg); Methadone, Urine Neg (Neg); Opiate, Urine Neg (Neg); Phencyclidine, Urine Neg (Neg)
--- NOTE | 2023-07-04 00:08 | History & Physical Report ---
Date of Service July 03, 2023 Assessment & Plan (1) CVA (cerebral vascular accident): Plan: 63-year-old male with past medical history significant for hypertension as per family but not taking medication and not been to doctors for many years was brought in because of stroke. 2 daughters and brother in the room. Patient is aphasic. Not able to give any history. As per daughter she talked with her father on Saturday evening. Saturday morning he did not text her which he usually does. And seems family was not able to contact them. When they went to check him today he was found on the floor and was brought in here. CT scan shows stroke. Patient able to answer yes. Mumbles. Has minimal movement on left side. Hemodynamics are okay. Afebrile. Labs shows total bilirubin 1.2. Total creatinine kinase 887. Troponin 1 high-sensitivity 43.9. Urine drug screen negative. Respiratory bio fire negative. CT head shows small hypodensities in the right prieto radiata, caudate and basal ganglia may represent subacute to chronic infarcts. CTA head shows occluded M1 segment of the right MCA with reconstitution of flow in the distal M1/M2 segments. Acute CVA Aphasia Left sided weakness not able to move his left extremities CT scan showing right prieto radiata, caudate and basal ganglia subacute to chronic infarcts CTA head shows occluded M1 segment of the right MCA with reconstitution of flow in the distal M1/M2 segments. Has last well known seems > 48hrs stroke alert was not called and also ct head showing sub acute infarcts. Will do MRI scan, speech evaluation, PT OT Aspirin suppository Will follow lipid profile and HbA1c levels Monitor blood pressure Follow echo N.p.o., IV fluids speech and pt/ot evaluation. Neuroconsult in a.m. Hypertension Not taking medication Will place on IV labetalol as needed for now to allow permissive hypertension Close monitor Elevated CPK In 800s Getting fluids Will follow repeat labs Elevated troponin In 40s EKG okay Will follow serial enzymes and echo DVT prophylaxis SCDs for now Disposition Telemetry floor Full code History of Present Illness Chief Complaint: Acute stroke Primary Care Provider: Bethany Lopez MD 63-year-old male with past medical history significant for hypertension as per family but not taking medication and not been to doctors for many years was brought in because of stroke. Two daughters and brother in the room. Patient is aphasic. Not able to give any history. As per daughter she talked with her father on Saturday evening. Saturday morning he did not text her which he usually does. And seems family was not able to contact them. When they went to check him today he was found on the floor and was brought in here. CT scan shows stroke. Patient able to answer yes. Mumbles. Has minimal movement on left side. Hemodynamics are okay. Afebrile. Labs shows total bilirubin 1.2. Total creatinine kinase 887. Troponin 1 high-sensitivity 43.9. Urine drug screen negative. Respiratory bio fire negative. CT head shows small hypodensities in the right prieto radiata, caudate and basal ganglia may represent subacute to chronic infarcts. CTA head shows occluded M1 segment of the right MCA with reconstitution of flow in the distal M1/M2 segments. Past medical history. Hypertension per daughter Past surgical history. Elbow surgery. Vasectomy. Family history. Father had lung cancer and was a smoker. Brother had diabetes. Social history. No smoking. No alcohol use. No drugs. Allergies Allergy/AdvReac Type Severity Reaction Status Date / Time No Known Allergies Allergy Verified 07/03/23 21:36 Home Medications Medication Instructions Recorded Confirmed Type No Known Home Medications 07/03/23 07/03/23 History Past Med/Surg History Medical History H/O gastroesophageal reflux (GERD) Social History Smoking Status: Unknown if ever smoked Do You Dip or Chew Tobacco: No; Hx Alcohol Use: No Hx Substance Use: No Preferred Language: Guatemalan Communication Ability: Effective Motorcyles Final Inspector Required: No Beliefs That Will Affect Care: None Current Living Situation: Alone Feels Safe at Home: Yes Safety Concerns: Feels Safe At This Time Review of Systems Review of Systems: Other Patient is aphasic from stroke Physical Exam Physical Exam: General- Not in acute distress Head- atraumatic Eyes- PERRL Neck- no JVD, Lungs- clear to auscultation no wheezing or crackles. Heart- regular rate and rhythm; no murmur, no gallop. Abdomen- normal bowel sounds, soft, nontender, no distension Extremities- no pretibial edema, no erythema seen. Neuro- Patient is aphasic. left facial droop, mumbles words, aable to lift right extremities on command. minimal movement on left extremities. Results & Data Results & Data Vital Signs (Past 12 Hours) Vital Signs Temp Pulse Resp BP Pulse Ox O2 Del Method 07/03/23 22:30 75 28 H 169/85 H 94 Room Air 07/03/23 22:15 77 28 H 164/80 H 94 Room Air 07/03/23 22:00 74 26 H 174/89 H 95 Room Air 07/03/23 21:45 80 23 175/69 H 96 Room Air 07/03/23 21:30 78 20 171/85 H 96 Room Air 07/03/23 21:26 78 07/03/23 21:26 37.2 C 83 18 172/70 H 95 Room Air Diagnostic Findings Laboratory Results WBC 9.17 K/ul (4.8-10.8) 07/03/23 20:30 RBC 5.49 M/uL (4.70-6.10) 07/03/23 20:30 Hgb 16.3 g/dl (14.0-18.0) 07/03/23 20:30 POC Hgb 15.0 g/dl (14.0-18.0) 07/03/23 21:43 Hct 46.9 % (42.0-52.0) 07/03/23 20:30 POC Hct 44 % (42-52) 07/03/23 21:43 MCV 85.4 fL (80.0-100.0) 07/03/23 20:30 MCH 29.7 pg (25.0-34.0) 07/03/23 20:30 MCHC 34.8 g/dL (32.0-36.0) 07/03/23 20:30 RDW Std Deviation 38.9 fL (36.4-46.3) 07/03/23 20:30 RDW Coeff of Emperatriz 12.4 % (11.5-14.5) 07/03/23 20:30 Plt Count 194 K/uL (130-400) 07/03/23 20:30 MPV 11.5 fL (9.4-12.4) 07/03/23 20:30 Immature Gran % (Auto) 0.2 % 07/03/23 20:30 Neut % (Auto) 74.3 % 07/03/23 20:30 Lymph % (Auto) 17.1 % 07/03/23 20:30 [place] % (Auto) 8.0 % 07/03/23 20:30 Eos % (Auto) 0.1 % 07/03/23 20:30 Baso % (Auto) 0.3 % 07/03/23 20:30 Neut # (Auto) 6.81 K/uL (1.40-6.50) H 07/03/23 20:30 Lymph # (Auto) 1.57 K/uL (1.20-3.40) 07/03/23 20:30 [place] # (Auto) 0.73 K/uL (0.11-0.59) H 07/03/23 20:30 Eos # (Auto) 0.01 K/uL (0.00-0.50) 07/03/23 20:30 Baso # (Auto) 0.03 K/uL (0.00-0.20) 07/03/23 20:30 Immature Gran # (Auto) 0.02 K/uL (0.01-0.20) 07/03/23 20:30 PT 11.8 Seconds (9.0-12.0) 07/03/23 20:30 INR 1.1 (0.9-1.1) 07/03/23 20:30 APTT 26 Seconds (21-31) 07/03/23 20:30 PTT Ratio 0.9 07/03/23 20:30 POC Sodium 138 mmol/L (135-144) 07/03/23 21:43 Sodium 140 mmol/L (136-145) 07/03/23 20:30 POC Potassium 5.4 mmol/L (3.3-5.0) H 07/03/23 21:43 Potassium 4.0 mmol/L (3.5-5.1) 07/03/23 20:30 POC Chloride 103 mmol/L (101-112) 07/03/23 21:43 Chloride 105 mmol/L (98-107) 07/03/23 20:30 Carbon Dioxide 24 mmol/L (21-32) 07/03/23 20:30 POC Total CO2 27 mmol/L (24-31) 07/03/23 21:43 Anion Gap 11 (3-11) 07/03/23 20:30 POC Anion Gap 15.0 mmol/L (16-25) L 07/03/23 21:43 POC BUN 40 mg/dl (7-18) H 07/03/23 21:43 BUN 29 mg/dl (6-23) H 07/03/23 20:30 Creatinine 0.88 mg/dl (0.6-1.4) 07/03/23 20:30 POC Creatinine 0.8 mg/dl (0.6-1.3) 07/03/23 21:43 Est Cr Clr Drug Dosing 86.4 ml/min 07/03/23 20:30 Est GFR ( Amer) 104.5 ml/min 07/03/23 20:30 Est GFR (Non-Af Amer) 90.1 ml/min 07/03/23 20:30 BUN/Creatinine Ratio 33.0 (10-20) H 07/03/23 20:30 Glucose 92 mg/dl (70-99(Fasting)) 07/03/23 20:30 POC Glucose (other) 97 mg/dl (70-99) 07/03/23 21:43 Lactate 1.5 mmol/L (0.4-2.0) 07/03/23 21:39 Calcium 9.8 mg/dl (8.6-10.3) 07/03/23 20:30 POC Ioniz Calcium Zak 1.10 mmol/l (1.12-1.32) L 07/03/23 21:43 Magnesium 2.1 mg/dl (1.7-2.4) 07/03/23 20:30 Total Bilirubin 1.2 mg/dl (0.2-1.0) H 07/03/23 20:30 AST 39 U/L (13-39) 07/03/23 20:30 ALT 23 U/L (7-52) 07/03/23 20:30 Alkaline Phosphatase 56 U/L (34-104) 07/03/23 20:30 Total Creatine Kinase 887 U/L (30-223) H 07/03/23 20:30 Troponin I High Sens 43.9 pg/ml (0-20) H 07/03/23 20:30 Total Protein 7.8 gm/dl (6.0-8.3) 07/03/23 20:30 Albumin 4.6 gm/dl (3.4-5.0) 07/03/23 20:30 Globulin 3.2 gm/dl (2.5-4.0) 07/03/23 20:30 Albumin/Globulin Ratio 1.4 (0.9-2) 07/03/23 20:30 Urine Color Yellow 07/03/23 22:55 Urine Appearance Clear (Clear) 07/03/23 22:55 Urine pH 5.0 (4.5-7.5) 07/03/23 22:55 Ur Specific [place] > 1.045 (1.000-1.030) H 07/03/23 22:55 Urine Protein Trace (Negative) H 07/03/23 22:55 Urine Glucose (UA) Negative (Negative) 07/03/23 22:55 Urine Ketones 3+ (Negative) H 07/03/23 22:55 Urine Blood Negative (Negative) 07/03/23 22:55 Urine Nitrite Negative (Negative) 07/03/23 22:55 Urine Bilirubin Negative (Negative) 07/03/23 22:55 Urine Urobilinogen Negative (Negative) 07/03/23 22:55 Ur Leukocyte Esterase Negative (Negative) 07/03/23 22:55 Urine WBC (Auto) 1-5 /hpf (0-5) 07/03/23 22:55 Urine RBC (Auto) 0-4 /hpf (0-4) 07/03/23 22:55 U Hyaline Cast (Auto) 1-5 /lpf (0-5) 07/03/23 22:55 U Epithel Cells (Auto) 0-5 /lpf (0-5) 07/03/23 22:55 Urine Bacteria (Auto) Negative (Negative) 07/03/23 22:55 Urine Opiates Screen Neg (Neg) 07/03/23 22:55 Ur Methadone, Qual Neg (Neg) 07/03/23 22:55 Urine Barbiturates Neg (Neg) 07/03/23 22:55 Ur Phencyclidine (PCP) Neg (Neg) 07/03/23 22:55 U Amphetamin/Meth Scrn Neg (Neg) 07/03/23 22:55 MDMA (Ecstasy) Screen Neg (Neg) 07/03/23 22:55 U Benzodiazepines Scrn Neg (Neg) 07/03/23 22:55 Ur Cocaine Metabolite Neg (Neg) 07/03/23 22:55 U Marijuana (THC) Screen Neg (Neg) 07/03/23 22:55 Ethyl Alcohol mg/dL < 10.0 mg/dl (<10.0) 07/03/23 21:39 Adenovirus (PCR) Not Detected (NotDetected) 07/03/23 22:28 B. pertussis DNA (PCR) Not Detected (NotDetected) 07/03/23 22:28 B.parapertussis DNA PCR Not Detected (NotDetected) 07/03/23 22:28 C. pneumoniae DNA (PCR) Not Detected (NotDetected) 07/03/23 22:28 Coronavirus OC43 (PCR) Not Detected (NotDetected) 07/03/23 22:28 Coronavirus HKU1 (PCR) Not Detected (NotDetected) 07/03/23 22:28 Coronavirus 229E (PCR) Not Detected (NotDetected) 07/03/23 22:28 SARS-CoV-2 (PCR) Not Detected (NotDetected) 07/03/23 22:28 Coronavirus NL63 (PCR) Not Detected (NotDetected) 07/03/23 22:28 Human Metapneumovir PCR Not Detected (NotDetected) 07/03/23 22:28 Influenza Type A (PCR) Not Detected (NotDetected) 07/03/23 22:28 Influenza Type B (PCR) Not Detected (NotDetected) 07/03/23 22:28 M. pneumoniae (PCR) Not Detected (NotDetected) 07/03/23 22:28 Parainfluenza 1 (PCR) Not Detected (NotDetected) 07/03/23 22:28 Parainfluenza 2 (PCR) Not Detected (NotDetected) 07/03/23 22:28 Parainfluenza 3 (PCR) Not Detected (NotDetected) 07/03/23 22:28 Parainfluenza 4 (PCR) Not Detected (NotDetected) 07/03/23 22:28 RSV (PCR) Not Detected (NotDetected) 07/03/23 22:28 Entero/Rhino (PCR) Not Detected (NotDetected) 07/03/23 22:[address] 07/03/23 20:51 CR Exam(s): CT HEAD Without Contrast EXAM: CT Head Without Intravenous Contrast CLINICAL HISTORY: Reason for exam: neuro deficit, acute stroke suspected. TECHNIQUE: Axial computed tomography images of the head/brain without intravenous contrast. CTDI is 67.18 mGy and DLP is 1098.96 mGy-cm. Automated exposure control was utilized for the study. A dose lowering technique was utilized adhering to the principles of ALARA. COMPARISON: None FINDINGS: Brain: Small hypodensities in the right prieto radiata, caudate, and basal ganglia may represent subacute or chronic infarcts. No hemorrhage identified. No extra-axial fluid collection. No mass effect or midline shift. Scattered areas of hypoattenuation in the supratentorial white matter likely represent chronic small vessel ischemic changes. Ventricles and sulci: Prominence of the ventricles and sulci is likely secondary to cerebral volume loss. Bones: Normal. No bony lesion or acute fracture. Subcutaneous tissues: Normal. Sinuses: Normal. No air-fluid levels or mucosal thickening. Mastoid air cells: Normal. Orbits: Grossly unremarkable. Other: Atherosclerotic calcifications in the intracranial vasculature. IMPRESSION: Small hypodensities in the right prieto radiata, caudate, and basal ganglia may represent subacute or chronic infarcts. Further evaluation could be performed with MRI. Communications: Verify Receipt Call Doctor Stroke Electronically signed by: Richa Bustillos M.D. 07/03/23 21:47 PM Head CTA 07/03/23 20:51 CR Exam(s): CTA HEAD With Contrast IV Amt: 115 ML OPTIRAY 320 EXAM: CT Angiography Head With Intravenous Contrast CLINICAL HISTORY: Reason for exam: neuro deficit, acute stroke suspected. TECHNIQUE: Axial computed tomographic angiography images of the head with intravenous contrast. CTDI is 26.58 mGy and DLP is 1243.71 mGy-cm. Automated exposure control was utilized for the study. A dose lowering technique was utilized adhering to the principles of ALARA. MIP reconstructed images were created and reviewed. CONTRAST: Patient received 115 ML OPTIRAY 320 of IV contrast COMPARISON: None FINDINGS: Right internal carotid artery: Mild atherosclerotic calcifications in the distal right ICA. No significant stenosis. No aneurysm. Right anterior cerebral artery: Unremarkable. No occlusion or significant stenosis. No aneurysm. Right middle cerebral artery: Occluded M1 segment of the right MCA with reconstitution of flow in the distal M1/M2 segments. No aneurysm. Right posterior cerebral artery: Unremarkable. No occlusion or significant stenosis. No aneurysm. Right vertebral artery: Unremarkable as visualized. Left internal carotid artery: Mild atherosclerotic calcifications of the distal left ICA. No significant stenosis. No aneurysm. Left anterior cerebral artery: Unremarkable. No occlusion or significant stenosis. No aneurysm. Left middle cerebral artery: Unremarkable. No occlusion or significant stenosis. No aneurysm. Left posterior cerebral artery: Unremarkable. No occlusion or significant stenosis. No aneurysm. Left vertebral artery: Unremarkable as visualized. Basilar artery: Unremarkable. No occlusion or significant stenosis. No aneurysm. IMPRESSION: Occluded M1 segment of the right MCA with reconstitution of flow in the distal M1/M2 segments. Communications: Call Doctor Stroke Electronically signed by: Richa Bustillos M.D. 07/03/23 21:50 PM Neck CTA 07/03/23 20:51 CR Exam(s): CTA NECK With Contrast IV Amt: 115 ML OPTIRAY 320 EXAM: CT Angiography Neck With Intravenous Contrast CLINICAL HISTORY: Reason for exam: neuro deficit, acute stroke suspected. TECHNIQUE: Routine carotid CT angiography protocol was performed with intravenous contrast. NASCET criteria using the distal ICAs for comparison were used for evaluation of stenoses. CTDI is 26.58 mGy and DLP is 1243.71 mGy-cm. Automated exposure control was utilized for the study. A dose lowering technique was utilized adhering to the principles of ALARA. MIP reconstructed images were created and reviewed. CONTRAST: Patient received 115 ML OPTIRAY 320 of IV contrast COMPARISON: None FINDINGS: VASCULATURE: Right common carotid artery: Unremarkable. No occlusion or significant stenosis. No dissection. Right internal carotid artery: Atherosclerotic calcifications of the proximal right ICA. No significant stenosis. No dissection. Right external carotid artery: Unremarkable. No occlusion. Right vertebral artery: Unremarkable. No occlusion or significant stenosis. No dissection. Left common carotid artery: Unremarkable. No occlusion or significant stenosis. No dissection. Left internal carotid artery: Atherosclerotic calcifications in the left carotid bulb. No significant stenosis. No dissection. Left external carotid artery: Unremarkable. No occlusion. Left vertebral artery: Unremarkable. No occlusion or significant stenosis. No dissection. NECK: Bones/joints: Degenerative changes of the spine. No acute fracture. Soft tissues: Unremarkable. Lung apices: Clear. CAROTID STENOSIS REFERENCE USING NASCET CRITERIA: % ICA stenosis = (1 - narrowest ICA diameter/diameter of distal cervical ICA) x 100. Mild - <50% stenosis. Moderate - 50-69% stenosis. Severe - 70-94% stenosis. Near occlusion - 95-99% stenosis. Occluded - 100% stenosis. IMPRESSION: No significant stenosis, occlusion, or dissection. Communications: Call Doctor Stroke Electronically signed by: Richa Bustillos M.D. 07/03/23 21:52 PM Abdomen/Pelvis CT 07/03/23 20:52 Exam(s): CT ABDOMEN + PELVIS With Contrast IV Amt: 115 ML OPTIRAY 320 EXAM: CT Abdomen and Pelvis With Intravenous Contrast CLINICAL HISTORY: Reason for exam: fall. TECHNIQUE: Axial computed tomography images of the abdomen and pelvis with intravenous contrast. CTDI is 12.6 mGy and DLP is 441.67 mGy-cm. Automated exposure control was utilized for the study. A dose lowering technique was utilized adhering to the principles of ALARA. CONTRAST: Patient received 115 ML OPTIRAY 320 of IV contrast COMPARISON: None FINDINGS: Lung bases: Unremarkable. No mass. No consolidation. ABDOMEN: Liver: Unremarkable. No mass. Gallbladder and bile ducts: Unremarkable. No calcified stones. No ductal dilation. Pancreas: Unremarkable. No mass. No ductal dilation. Spleen: Unremarkable. No splenomegaly. Adrenals: Unremarkable. No mass. Kidneys and ureters: Unremarkable. No hydronephrosis or obstructing stone. Stomach and bowel: Evaluation of the stomach is limited by underdistention. No mucosal thickening. No bowel obstruction or inflammation. PELVIS: Appendix: Appendix is not visualized on this exam. Bladder: Mild prominence of the bladder wall is nonspecific. Please correlate with urinalysis if concerned for cystitis. Reproductive: Borderline size of the prostate. ABDOMEN and PELVIS: Intraperitoneal space: Unremarkable. No free air. No significant fluid collection. Bones/joints: Degenerative changes of the spine. No acute fracture. No dislocation. Soft tissues: Small fat-containing left inguinal hernia. Vasculature: Unremarkable. No abdominal aortic aneurysm. Lymph nodes: Unremarkable. No enlarged lymph nodes. IMPRESSION: Mild prominence of the bladder wall is nonspecific. Please correlate with urinalysis if concerned for cystitis. No acute traumatic abnormality. Electronically signed by: Richa Bustillos M.D. 07/03/23 21:[address] 07/03/23 20:52 Exam(s): CT C SPINE EXAM: CT Cervical Spine Without Intravenous Contrast CLINICAL HISTORY: Reason for exam: fall. TECHNIQUE: Axial computed tomography images of the cervical spine without intravenous contrast. CTDI is 12.6 mGy and DLP is 441.67 mGy-cm. Automated exposure control was utilized for the study. A dose lowering technique was utilized adhering to the principles of ALARA. COMPARISON: None FINDINGS: Bones: No acute fracture or bony lesion. Disc spaces: Degenerative changes of the spine. Mild retrolisthesis of C3 on C4. Moderate spinal canal stenosis at C3-4 and C5-6. Soft tissues: Normal. Other: Atherosclerotic changes of the vasculature. IMPRESSION: No acute traumatic abnormality. Electronically signed by: Richa Bustillos M.D. 07/03/23 21:[address] 07/03/23 20:52 Exam(s): CT CHEST With Contrast IV Amt: 115 ML OPTIRAY 320 EXAM: CT Chest With Intravenous Contrast CLINICAL HISTORY: Reason for exam: fall. TECHNIQUE: Axial computed tomography images of the chest with intravenous contrast. CTDI is 25.8 mGy and DLP is 871.68 mGy-cm. Automated exposure control was utilized for the study. A dose lowering technique was utilized adhering to the principles of ALARA. CONTRAST: Patient received 115 ML OPTIRAY 320 of IV contrast COMPARISON: None FINDINGS: Limitations: Exam is limited by motion artifacts. Lungs: Unremarkable. No mass. No consolidation. Pleural space: Unremarkable. No pneumothorax. No significant effusion. Heart: Unremarkable. No cardiomegaly. No significant pericardial effusion. No significant coronary artery calcifications. Bones/joints: Degenerative changes of the spine. No acute fracture. No dislocation. Soft tissues: Unremarkable. Vasculature: Unremarkable. No thoracic aortic aneurysm. Lymph nodes: Unremarkable. No enlarged lymph nodes. IMPRESSION: No definite acute findings in the chest. Evaluation is limited by motion artifact. Electronically signed by: Richa Bustillos M.D. 07/03/23 21:54 PM ECG Additional Comments: ECG. Normal sinus rhythm rate 78. Left ventricular hypertrophy with repolarization abnormality. Code Status & VTE Plan VTE Prophylaxis Plan VTE Prophylaxis will be ordered: Yes
[2023-07-04] MEDS ORDERED: NITROGLYCERIN SL 0.4 MG/TAB TAB SL PRN (02:10)
[2023-07-04] MEDS ORDERED: PHARMACIST DISCHARGE MED REC CONSULT PRN (02:10)
[2023-07-04] MEDS ORDERED: LABETALOL HCL IV 5 MG/ML 20ML IV PRN (02:10)
[2023-07-04] MEDS: SODIUM CHLORIDE 0.9% 1,000 ML IV SCH (02:53)
[2023-07-04] MEDS: ASPIRIN 300 MG SUPP PR ONE (03:00)
[2023-07-04] MEDS: GADOBUTROL 65ML VIAL IV ONE (04:50)
--- NOTE | 2023-07-04 06:58 | XRay Report ---
XR chest 1V portable HISTORY: neuro deficit, acute stroke suspected COMPARISON: Chest CT 07/03/2023. FINDINGS: No pneumothorax. No pleural effusions. The cardiac silhouette is mildly enlarged. No focal lung consolidations to suggest pneumonia. No evidence for pulmonary edema. No acute fractures. IMPRESSION: Mild cardiomegaly. Otherwise, no acute process within the chest. ACT 112: Negative or not required by law. Electronically signed by: Robert Smith M.D. 07/04/2023 6:56 AM
[2023-07-04 08:06] LABS: Basophils # (auto) 0.03 K/uL (0.00-0.20); Basophils % (auto) 0.5 %; Eosinophils # (auto) 0.05 K/uL (0.00-0.50); Eosinophils % (auto) 0.8 %; Hemoglobin 14.5 g/dl (14.0-18.0); Immature Granulocytes # (auto) 0.02 K/uL (0.01-0.20); Immature Granulocytes % (auto) 0.3 %; Lymphocytes # (auto) 1.48 K/uL (1.20-3.40); Lymphocytes % (auto) 22.4 %; Mean Corpuscular Hemoglobin 29.1 pg (25.0-34.0); Mean Corpuscular Hgb Conc 33.7 g/dL (32.0-36.0); Mean Corpuscular Volume 86.2 fL (80.0-100.0); Mean Platelet Volume 10.3 fL (9.4-12.4); Monocytes # (auto) 0.53 K/uL (0.11-0.59); Neutrophils # (auto) 4.51 K/uL (1.40-6.50); Platelet Count 181 K/uL (130-400); RDW Coefficient of Variation 12.7 % (11.5-14.5); RDW Standard Deviation 39.5 fL (36.4-46.3); Red Blood Count 4.99 M/uL (4.70-6.10); White Blood Count 6.62 K/ul (4.8-10.8)
--- NOTE | 2023-07-04 08:06 | Magnetic Resonance Report ---
Exam(s): MRI HEAD W/WO Contrast IV Amt: 8cc gadavist EXAM: MR Head Without and With Intravenous Contrast CLINICAL HISTORY: Reason for exam: acute cva. TECHNIQUE: Magnetic resonance images of the head/brain without and with intravenous contrast in multiple planes. CONTRAST: Patient received 8cc gadavist of IV contrast COMPARISON: Comparison made to prior head CT from July 03, 2023. FINDINGS: Brain: Multiple acute ischemic injuries within the right frontal and temporal lobes in addition to the capsule and basal ganglia with extensive cytotoxic edema, without evidence of hemorrhagic transformation. . No mass. No hemorrhage. The flow voids at the base the brain are intact. Normal enhancement of the brain parenchyma. The dural venous sinuses are patent. Ventricles: Unremarkable. No ventriculomegaly. Bones/joints: Unremarkable. No acute fracture. Sinuses: Unremarkable as visualized. No acute sinusitis. Mastoid air cells: Unremarkable as visualized. No mastoid effusion. Orbits: Unremarkable as visualized. IMPRESSION: Multiple acute ischemic injuries within the right frontal and temporal lobes including the capsule and basal ganglia concerning for embolic phenomenon. Communications: Verify Receipt Electronically signed by: Yolis Reyes MD 07/04/23 08:05 AM
[2023-07-04 08:28] LABS: BUN Creatinine Ratio 35.4 (10-20); Chol HDL Ratio 3.7 (0-5); Creatinine Clr Calc Pharmacy 92.7 ml/min; Est GFR (African American) 107.6 ml/min; Est GFR (Non-African American) 92.8 ml/min; Potassium 3.7 mmol/L (3.5-5.1)
[2023-07-04 09:46] LABS: Estimated Average Glucose 120 mg/dl; Hemoglobin A1C 5.8 % (4.5-5.6)
[2023-07-04] MEDS: ASPIRIN 300 MG SUPP PR SCH (10:15)
--- NOTE | 2023-07-04 12:20 | Ultrasound Report ---
BILATERAL LOWER EXTREMITY VENOUS DOPPLER HISTORY: Multiple cerebral infarcts. embolic shower, r/o dvt COMPARISON STUDY: None. FINDINGS: There is normal compressibility, flow, and augmentation within the bilateral lower extremit y deep venous systems. IMPRESSION: No DVT within the right or left lower extremity. ACT 112: Negative or not required by law. Electronically signed by: Robert Smith M.D. 07/04/2023 12:19 PM
[2023-07-04] MEDS ORDERED: STROKE PATIENT DISCHARGE STA (12:54)
--- NOTE | 2023-07-04 13:11 | Discharge Summary ---
Discharge Summary Date of Service July 04, 2023 Notes For Next Care Provider Medication Changes From Visit ASA 300mg per rectum Admission HPI Per Admitting Provider 63-year-old male with past medical history significant for hypertension as per family but not taking medication and not been to doctors for many years was brought in because of stroke. Two daughters and brother in the room. Patient is aphasic. Not able to give any history. As per daughter she talked with her father on Saturday evening. Saturday morning he did not text her which he usually does. And seems family was not able to contact them. When they went to check him today he was found on the floor and was brought in here. CT scan shows stroke. Patient able to answer yes. Mumbles. Has minimal movement on left side. Hemodynamics are okay. Afebrile. Labs shows total bilirubin 1.2. Total creatinine kinase 887. Troponin 1 high-sensitivity 43.9. Urine drug screen negative. Respiratory bio fire negative. CT head shows small hypodensities in the right prieto radiata, caudate and basal ganglia may represent subacute to chronic infarcts. CTA head shows occluded M1 segment of the right MCA with reconstitution of flow in the distal M1/M2 segments. Past medical history. Hypertension per daughter Past surgical history. Elbow surgery. Vasectomy. Family history. Father had lung cancer and was a smoker. Brother had diabetes. Social history. No smoking. No alcohol use. No drugs. Admission Exam Per Admitting Provider General- Not in acute distress Head- atraumatic Eyes- PERRL Neck- no JVD, Lungs- clear to auscultation no wheezing or crackles. Heart- regular rate and rhythm; no murmur, no gallop. Abdomen- normal bowel sounds, soft, nontender, no distension Extremities- no pretibial edema, no erythema seen. Neuro- Patient is aphasic. left facial droop, mumbles words, aable to lift right extremities on command. minimal movement on left extremities. Principal Dx & Hospital Course #1 = Principal Diagnosis (1) CVA (cerebral vascular accident): Mr. Hale 63-year-old male with past medical history significant for hypertension not on medication who presented to ED 07/02 due to concern for s troke. Patient was last well known Saturday/Saturday. Family found patient on ground and called ems. Left hemiparesis noted. Left hemineglect noted. Dysarthric with expressive aphasia. CT head shows small hypodensities in the right prieto radiata, caudate and basal ganglia may represent subacute to chronic infarcts. CTA head shows occluded M1 segment of the right MCA with reconstitution of flow in the distal M1/M2 segments. MRI revealed multiple acute ischemic injuries in right frontal/temporal lobes with extensive cyotoxic edema. #Acute R MCA occlusion with hemiplegia/hemineglect and aphasia CT scan showing right prieto radiata, caudate and basal ganglia subacute to chronic infarcts CTA head shows occluded M1 segment of the right MCA with reconstitution of flow in the distal M1/M2 segments. MRI with multiple acute injuries and cytoxic edema Initially admitting ED/hospitalist reported "Has last well known seems > 48hrs stroke alert was not called and also ct head showing sub acute infarcts" [facility] consulted today given occlusion and edema on MRI ASA suppository -Transfer to [facility] for ICU monitoring given cytoxic edema #Hypertension Not taking medication Will place on IV labetalol as needed for now to allow permissive hypertension Close monitor #Nontraumatic Rhabdomyolysis 2/2 being down for unknown period of time In 800s-->490 Getting fluids Will follow repeat labs #Elevated troponin In 40s, downtrended with CK, no demand EKG okay ECHO with LVH Transfer to [facility] Discharge Exam Constitutional no distress. Opens eyes to name, Respiratory normal respiratory effort, lungs clear to auscultation Cardiovascular RRR, no murmur, no edema Gastrointestinal (Abdomen) normal bowel sounds, soft, nontender, no hepatosplenomegaly Neurologic Left facial droop, left UE/LE strength 0/5, antigravity Comprehension intact, expressive aphasia and dysarthria noted. Updated Medication List Medication Instructions Recorded Confirmed Type No Known Home Medications 07/03/23 07/03/23 History Hospital Stay Data Consultations 07/03/23 23:16 ED Decision to Admit Stat 07/04/23 08:00 Consult Neurology Routine 07/04/23 12:52 Burn CD for patient Stat Diagnostic Imagining Performed 07/03/23 20:51 CT angio head w con Stat CT angio neck with con Stat CT head/brain wo con Stat 07/03/23 20:52 CT abd pelvis IV con only Stat CT cervical spine wo con Stat CT chest diagnostic w con Stat 07/04/23 02:10 MR brain wo/w con Urgent 03/14/24 10:09 US venous doppler LE BI Routine Pending Results Patient Have Any Pending Studies at Discharge: No Discharge Instructions Given to Patient (Per Discharging Provider) You were admitted for stroke with concerns of right MCA occlusion with left sided hemiparesis/hemineglect You will be transferred to [facility] for close monitoring of edema in the brain within an ICU setting Total Time Total Time Spent Total Time Spent (In Minutes): 45
--- NOTE | 2023-07-06 06:25 | Electrocardiogram Report ---
Test Reason : Blood Pressure : / mmHG Vent. Rate : 078 BPM Atrial Rate : 078 BPM P-R Int : 166 ms QRS Dur : 082 ms QT Int : 378 ms P-R-T Axes : 080 004 033 degrees QTc Int : 430 ms Normal sinus rhythm Left ventricular hypertrophy with repolarization abnormality Nonspecific ST abnormality Abnormal ECG No previous ECGs available Confirmed by Alec Guerra ([id number]) on 07/06/2023 6:25:09 AM Referred By: REFERRED SELF Confirmed By:Alec Guerra
== END 2023-07-04 13:50 | disposition short-term general hospital (02) | DRG 64 ==
LOC: ED 21:12 → 2S 23:50